=== PATIENT | female | born 2000 | race Caucasian/White ===

== ENCOUNTER 2022-10-09 11:24 | Emergency (ER) | payer OTHER, SELFPAY ==
[2022-10-09 11:32] VITALS: BP 109/68; PULSE 82; RESP 16; TEMP 36.6; O2SAT 100
--- NOTE | 2022-10-09 11:42 | ED.NAVMDI ---
HPI - Nausea/Vomiting/Diarrhea General Chief complaint: Nausea/Vomiting/Diarrhea Stated complaint: n/d/v Time Seen by Provider: 10/09/22 11:36 Source: patient and RN notes reviewed Mode of arrival: ambulatory Limitations: no limitations History of Present Illness HPI Narrative: 22-year-old female presents concern for nausea and vomiting. Reports yesterday she began having nausea, with small amount of diarrhea and several episodes of vomiting. Reports there is a stomach bug going around at work, she works at a daycare. She reports symptoms have improved, she has not had vomiting today, she has not had diarrhea today. She reports mild nausea. Reports she is keeping down food and fluids. She denies fever, aches, chills, sweats, abdominal pain, dysuria, frequency, urgency, back pain. Denies upper respiratory symptoms MD elicited complaint: nausea, vomiting and diarrhea Related Data Home Medications Medication Instructions Recorded Confirmed etonogestrel 68 mg subdermal 1 implant subdermal ONCE 10/09/22 10/09/22 implant (Nexplanon) Allergies Allergy/AdvReac Type Severity Reaction Status Date / Time No Known Allergies Allergy Verified 10/09/22 11:33 Review of Systems Review of Systems: CONSTITUTIONAL: Denies malaise, chills, sweats, or fever. ENT: Denies rhinorrhea, congestion, sinus pain, otalgia or sore throat. CARDIOVASCULAR: Denies chest pain, palpitations, or edema. RESPIRATORY: Denies cough or dyspnea. GASTROINTESTINAL: Denies abdominal pain, bloody, or mucous stools. Reports nausea, vomiting, diarrhea that are resolving GENITOURINARY: Denies dysuria or hematuria. MUSCULOSKELETAL: Denies myalgia. NEUROLOGIC: Denies headache. All systems reviewed & are unremarkable except as noted in HPI and below [facility] Past Medical History Medical History (Updated 10/09/22 @ 11:44 by Tonja Finn NP) Fractures Right arm Heart murmur Tonsillitis Surgical History Surgical History (Updated 09/13/19 @ 15:20 by SAMPSON Lincoln) Hx of tonsillectomy Social History Social History Gender identity (if verbalized by the patient): Female Comments At time of signature, agree with nursing past medical, surgical, social and family history. There is no relevant family history pertinent to the presenting complaint Exam Narrative: GENERAL: Well-appearing, well-nourished, and in no acute distress. HEAD: Normocephalic, atraumatic. EYES: PERRLA, conjunctivae clear, and EOMI. ENT: Nares clear, turbinates pink, no rhinorrhea or epistaxis. Mucous membranes moist. Oropharynx without edema, erythema, or lesions. Tonsils not enlarged and without exudate. NECK: Supple. No lymphadenopathy CHEST: Speaks in full sentences. No respiratory distress. HEART: Regular rate and rhythm. ABDOMEN: Soft, flat, nondistended, nontender. No guarding, rebound tenderness, or rigidity. No pulsatile masses. Bowel sounds present in all four quadrants. No organomegaly. Negative Vega?s sign. No periumbilical tenderness. No Supra public tenderness or distension. SKIN: Warm, dry, no rash. NEURO: Alert and oriented x3. PSYCH: Normal mood and affect Course Course Emergency Course: Patient is aware of diagnosis, understands and agrees to treatment plan. Anticipatory guidance given. Patient agrees to follow-up as directed and is aware of reasons to seek care at the emergency department. Portions of this record may have been created with voice recognition software Level of Care: Express Care Visit Vital Signs Vital signs: Vital Signs Temperature 97.9 F 10/09/22 11:32 Pulse Rate 82 10/09/22 11:32 Respiratory Rate 16 10/09/22 11:32 Blood Pressure 109/68 10/09/22 11:32 Pulse Oximetry 100 10/09/22 11:32 Oxygen Delivery Room Air 10/09/22 11:32 Temperature 97.9 F 10/09/22 11:32 Pulse Rate 82 10/09/22 11:32 Respiratory Rate 16 10/09/22 11:32 Blood Pressure
== END 2022-10-09 11:48 | disposition home or self-care (01) ==
PROVIDERS: Emergency Provider Nurse Practitioner
DX: R11.0 Nausea (principal); R01.1 Cardiac murmur, unspecified
CPT/HCPCS: 99211; G0463

== ENCOUNTER 2022-10-20 18:09 | Emergency (ER) | payer OTHER, SELFPAY ==
[2022-10-20 18:17] VITALS: BP 113/56; PULSE 155; RESP 16; TEMP 38; O2SAT 100
--- NOTE | 2022-10-20 19:05 | ED.URI ---
HPI - URI/Sore Throat General Chief Complaint: Upper Respiratory Infection Stated Complaint: Fever/Sore Throat Time Seen by Provider: 10/20/22 19:05 Source: patient and RN notes reviewed Mode of arrival: ambulatory Limitations: no limitations History of Present Illness HPI Narrative: 22-year-old female presented for complaint headache, body aches, sinus pressure/congestion, cough, Sore throat, fever/chills. onset 2 days. also reports left eye is red and itchy. She states she woke today with small amount of crust. She denies sick contacts. He denies shortness of breath, wheezing, nausea, vomiting or diarrhea. She is taking fever reducers And NyQuil. MD elicited complaint: cough Related Data Home Medications Medication Instructions Recorded Confirmed etonogestrel 68 mg subdermal 1 implant subdermal ONCE 10/09/22 10/20/22 implant (Nexplanon) Allergies Allergy/AdvReac Type Severity Reaction Status Date / Time No Known Allergies Allergy Verified 10/09/22 11:33 Review of Systems Review of Systems: per HPI [facility] Past Medical History Medical History Fractures Right arm Heart murmur Tonsillitis Surgical History Surgical History Hx of tonsillectomy Social History Social History Gender identity (if verbalized by the patient): Female Exam Narrative: GENERAL: Ill-appearing, nontoxic no acute distress. HEAD: Normocephalic EYES: PERRLA, left conjunctival injection without drainage ENT: Mucous membranes moist. TM pearly ghosh with dull light reflex bilaterally; no tragal tenderness. Oropharynx erythematous without lesions or exudate, tonsils absent, no drooling, no hoarseness, no trismus, uvula midline. No tripod positioning, muffled voice, soft palate or pharyngeal wall bulging NECK: Supple. No lymphadenopathy CHEST: Clear to auscultation, breath sounds equal. No wheezing, rhonchi, rales, or stridor. No respiratory distress, speaks in full sentences. HEART: Regular rate and rhythm. No murmur heard. SKIN: Warm, dry, no rash. NEURO: Alert and oriented x3. PSYCH: Normal mood and affect Course Course Emergency Course: Patient is aware of diagnosis, understands and agrees to treatment plan. Anticipatory guidance given. Patient agrees to follow-up as directed and is aware of reasons to seek care at the emergency department. Portions of this record may have been created with voice recognition software Level of Care: Express Care Visit Vital Signs Vital signs: Vital Signs Temperature 100.4 F H 10/20/22 18:17 Pulse Rate 155 H 10/20/22 18:17 Respiratory Rate 16 10/20/22 18:17 Blood Pressure 113/56 L 10/20/22 18:17 Pulse Oximetry 100 10/20/22 18:17 Oxygen Delivery Room Air 10/20/22 18:17 Temperature 100.4 F H 10/20/22 18:17 Pulse Rate 155 H 10/20/22 18:17 Respiratory Rate 16 10/20/22 18:17 Blood Pressure 113/56 L 10/20/22 18:17 Pulse Oximetry 100 10/20/22 18:17 Oxygen Delivery Room Air 10/20/22 18:17 reviewed MDM - URI/Sore Throat MDM Narrative Medical decision making narrative: flu and COVID negative. Strep test negative, However will treat based on PE and cc. 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 Will start if sx worsen. Advised supportive measures and signs/symptoms to go to the ER. Pt is appropriate for outpt treatment and f/u. Differential Diagnosis Differential diagnosis: Likely upper respiratory infection, sinusitis, viral infection, influenza and pharyngitis Lab Data Labs: Lab Results 10/20/22 Range/Units 18:36 POC SARS CoV-2 Ag Negative (Negative) Influenza A Screen Negative Reference Range: Negative Influenza B Screen Negative
== END 2022-10-20 19:19 | disposition home or self-care (01) ==
PROVIDERS: Emergency Provider Nurse Practitioner Family
DX: J02.9 Acute pharyngitis, unspecified (principal); H10.9 Unspecified conjunctivitis; Z20.822 Contact with and (suspected) exposure to COVID-19; R01.1 Cardiac murmur, unspecified
CPT/HCPCS: 87081; 87426; 87804; 87880; 99213; C9803; G0463

== ENCOUNTER 2023-07-31 14:33 | Emergency (ER) | payer SELFPAY ==
--- NOTE | 2023-07-31 14:36 | ED.EAR ---
HPI - Ear Problem General Chief complaint: Ear Stated complaint: Left Ear Irritation Time Seen by Provider: 07/31/23 15:15 Source: patient and RN notes reviewed Mode of arrival: ambulatory Limitations: no limitations History of Present Illness HPI Narrative: 23-year-old female presents concern for cerumen impaction left ear. She reports she has used Debrox at home without relief. She denies pain or drainage. MD Complaint: other (Cerumen impaction) Related Data Home Medications Medication Instructions Recorded Confirmed No Home Medications 07/31/23 07/31/23 Allergies Allergy/AdvReac Type Severity Reaction Status Date / Time No Known Allergies Allergy Verified 07/31/23 14:52 Review of Systems Review of Systems: CONSTITUTIONAL: Denies malaise, chills, sweats, or fever. EYES: Denies visual changes, redness, or discharge. ENT: Denies rhinorrhea, congestion, sinus pain, and sore throat. Reports cerumen impaction left ear CARDIOVASCULAR: Denies chest pain, palpitations, or edema. RESPIRATORY: Denies cough. Denies dyspnea. GASTROINTESTINAL: Denies abdominal pain, nausea, vomiting, diarrhea SKIN: Denies rash or itching. MUSCULOSKELETAL: Denies myalgia. NEUROLOGIC: Denies headache. All systems reviewed & are unremarkable except as noted in HPI and below [facility] Past Medical History Medical History Fractures Right arm Heart murmur Tonsillitis Surgical History Surgical History Hx of tonsillectomy Social History Social History Gender identity (if verbalized by the patient): Female Comments At time of signature, agree with nursing past medical, surgical, social and family history. There is no relevant family history pertinent to the presenting complaint Exam Narrative: GENERAL: Well-appearing, well-nourished, and in no acute distress. HEAD: Normocephalic EYES: PERRLA, conjunctivae clear ENT: Nares clear, turbinates edematous, clear discharge. Mucous membranes moist. TM pearly ghosh with dull light reflex, left TM not visible due to cerumen impaction; no tragal tenderness. Oropharynx not erythematous without lesions. Tonsils not enlarged and without exudate, no drooling, no hoarseness, no trismus, uvula midline. NECK: Supple. No lymphadenopathy CHEST: Clear to auscultation, breath sounds equal. No wheezing, rhonchi, rales, or stridor. No respiratory distress, speaks in full sentences. HEART: Regular rate and rhythm. No murmur heard. SKIN: Warm, dry, no rash. NEURO: Alert and oriented x3. PSYCH: Normal mood and affect Course Course Emergency Course: Patient is aware of diagnosis, understands and agrees to treatment plan. Anticipatory guidance given. Patient agrees to follow-up as directed and is aware of reasons to seek care at the emergency department. Portions of this record may have been created with voice recognition software Level of Care: Express Care Visit Vital Signs Vital signs: Reviewed. Procedures Ear Wax Removal Left Ear: Ear Wax Removal Date: 07/31/23 Ear Wax Removal Time: 15:20 Cerumenolytic Used: other (Hydrogen peroxide) Results: Re-examined: removal reattempted Ear Canal Exam: atraumatic Patient Tolerated Procedure: well Technique: ear canal irrigated and ear canal curetted Additional Comments: with patient's consent, multiple attempts at soaking ear canal with hydrogen peroxide as well as debrox to soften the wax then irrigate and currette, none were successful, wax remains hard and immovable. Patient referred to ENT Medical Decision Making MDM Narrative Medical decision making narrative: Differential diagnosis considered: Hannon virus, strep pharyngitis, allergic rhinitis, upper respiratory tract infection, sinusitis, rhinosinusitis, nasopharyngitis. viral pha
[2023-07-31 14:51] VITALS: BP 123/76; PULSE 102; RESP 16; TEMP 36.8; O2SAT 100
[2023-07-31 14:52] VITALS: BP 123/76; PULSE 102; RESP 16; TEMP 36.8; O2SAT 100
[2023-07-31] MEDS: CARBAMIDE PEROXIDE 6.5% OT SOLN 15 ML BTL 5 DROP LEFT EAR (16:10)
== END 2023-07-31 17:19 | disposition home or self-care (01) ==
PROVIDERS: Emergency Provider Nurse Practitioner
DX: H61.22 Impacted cerumen, left ear (principal)
CPT/HCPCS: 69210; 99213; A9270; G0463